=== PATIENT | male | born 1955 | race Two or more races ===

== ENCOUNTER 2023-04-22 11:45 | Inpatient (IN) | payer OTHER ==
[~2023-04-22] VITALS: Ht 175.3 cm; Wt 87.5 kg
[2023-04-22] MEDS ORDERED: CANDESAR PO (14:57)
[2023-04-22] MEDS ORDERED: FENOFI PO (14:57)
[2023-04-22] MEDS ORDERED: [UNRECOGNIZED DRUG - OTHER] PO (14:58)
[2023-04-22] MEDS ORDERED: PRAVAST PO (14:59)
[2023-04-26] MEDS ORDERED: CENTRUM MEN'S1 EACH (11:34)
[2023-04-26] MEDS ORDERED: PRAVASTATIN SOD20 MG (11:35)
[2023-04-26] MEDS ORDERED: CANDESARTAN CIL16 MG (11:35)
[2023-04-26] MEDS ORDERED: FENOFIBRIC ACI135 MG (11:35)
[2023-04-26 15:52] LABS: HEMATOCRIT 41.5 % (39.0-48.0); HEMOGLOBIN 14.4 g/dL (13-16.00); MEAN CELL VOLUME 88.9 fL (80.0-100.00); MEAN CORPUSCULAR HEMOGLOBIN 30.7 pg (27.00-32.0); MEAN CORPUSCULAR HGB CONC 34.5 g/dl (32.0-36.0); PLATELET COUNT 178 K/uL (150-450); RED BLOOD COUNT 4.67 M/uL (4.00-6.00); RED CELL DISTRIBUTION WIDTH 13.3 % (11.5-14.5)
[2023-04-26 16:12] LABS: ALBUMIN 3.9 gm/dL (3.4-5.0); CALCIUM 8.3 mg/dL (8.5-10.1); CREATININE SERUM 0.96 mg/dL (0.70-1.30); GFR 77.66; MAGNESIUM 2.1 mg/dL (1.8-2.4); PHOSPHOROUS 2.6 mg/dL (2.5-4.9); POTASSIUM 3.92 mEq/L (3.5-5.1)
[2023-04-27 07:57] LABS: HEMATOCRIT 37.8 % (39.0-48.0); HEMOGLOBIN 13.1 g/dL (13-16.00); MEAN CORPUSCULAR HEMOGLOBIN 30.4 pg (27.00-32.0); MEAN CORPUSCULAR HGB CONC 34.6 g/dl (32.0-36.0); PLATELET COUNT 165 K/uL (150-450); RED CELL DISTRIBUTION WIDTH 13.3 % (11.5-14.5)
[2023-04-27 08:34] LABS: ALBUMIN 3.1 gm/dL (3.4-5.0); CALCIUM 7.9 mg/dL (8.5-10.1); CREATININE SERUM 0.88 mg/dL (0.70-1.30); GFR 85.86; PHOSPHOROUS 2.6 mg/dL (2.5-4.9); POTASSIUM 4.01 mEq/L (3.5-5.1)
[2023-04-28 19:14] LABS: HEMATOCRIT 36.2 % (39.0-48.0); HEMOGLOBIN 12.3 g/dL (13-16.00); MEAN CELL VOLUME 88.6 fL (80.0-100.00); MEAN CORPUSCULAR HEMOGLOBIN 30.1 pg (27.00-32.0); MEAN CORPUSCULAR HGB CONC 33.9 g/dl (32.0-36.0); PLATELET COUNT 146 K/uL (150-450); RED BLOOD COUNT 4.09 M/uL (4.00-6.00); RED CELL DISTRIBUTION WIDTH 13.4 % (11.5-14.5)
[2023-04-29 06:41] LABS: HEMATOCRIT 36.8 % (39.0-48.0); HEMOGLOBIN 12.8 g/dL (13-16.00); MEAN CELL VOLUME 88.3 fL (80.0-100.00); MEAN CORPUSCULAR HEMOGLOBIN 30.6 pg (27.00-32.0); MEAN CORPUSCULAR HGB CONC 34.7 g/dl (32.0-36.0); PLATELET COUNT 159 K/uL (150-450); RED BLOOD COUNT 4.17 M/uL (4.00-6.00); RED CELL DISTRIBUTION WIDTH 13.3 % (11.5-14.5)
== END 2023-04-29 11:13 | disposition home or self-care (01) | DRG 330 ==
LOC: SURH 04-26 08:00 → O/R 04-26 08:00 → SURH 04-26 11:45
PROVIDERS: Colon & Rectal Surgery; ADMIT Surgery; ATTEND Surgery
PROC: 07BC4ZZ Excision of Pelvis Lymphatic, Percutaneous Endoscopic Approach (ICD-10-PCS; 2023-04-26)
PROC: 3E0F7SF Introduction of Other Gas into Respiratory Tract, Via Natural or Artificial Opening (ICD-10-PCS; 2023-04-26)
PROC: 0DTF4ZZ Resection of Right Large Intestine, Percutaneous Endoscopic Approach (ICD-10-PCS; principal; 2023-04-26 16:00)
DX: C18.2 Malignant neoplasm of ascending colon (principal); K92.1 Melena; R59.0 Localized enlarged lymph nodes; I10 Essential (primary) hypertension; E78.00 Pure hypercholesterolemia, unspecified